=== PATIENT | male | born 1995 | race Caucasian/White ===

== ENCOUNTER 2019-01-05 13:17 | Emergency (ER) | payer OTHER ==
[~2019-01-05] VITALS: Ht 172.7 cm; Wt 95.3 kg
[2019-01-05 13:19] VITALS: BP 11/85
--- NOTE | 2019-01-05 13:52 | NUR ---
PT BIB FAMILY C/O BLE PAIN. 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 TX WITH ICE AND TYLENOL W/ RELIEF. NO SWELLING, DEFORMITY, REDNESS OR BRUISING. + CMS. VSS. ER TO SEE PT. MEDHX:DENIES RX:DENIES
--- NOTE | 2019-01-05 14:35 | NUR ---
PRABHU LAU AT BEDSIDE
[2019-01-05 14:55] VITALS: BP 123/70
== END 2019-01-05 14:55 | disposition home or self-care (01) ==
LOC: MED 13:17
DX: M25.572 Pain in left ankle and joints of left foot (principal); G89.29 Other chronic pain; M79.604 Pain in right leg
CPT/HCPCS: 99282